=== PATIENT | male | born 1935 | race Caucasian/White ===

== ENCOUNTER 2024-08-20 10:18 | Emergency (ER) | payer MEDICARE, OTHER, SELFPAY ==
[2024-08-20 10:22] VITALS: BP 114/57
[2024-08-20 11:04] VITALS: BMI 23.4
--- NOTE | 2024-08-20 11:05 | ED.GENMED ---
History of Present Illness
General
Chief Complaint: Abdominal Symptoms
Source: patient
Exam Limitations: none
Time Seen by Provider: 08/20/24 10:53
Nursing documentation reviewed up to this point in time: agreed with
History of Present Illness
History of Present Illness:
Patient presents to ED secondary to persistent lower abdominal pain, along with diarrhea over the past 10 days, which has worsened over the past 48 hours. Denies fever or chills. Denies nausea or vomiting. Denies trauma. Denies recent change in
medications or diet. Patient states that he has had number of similar symptoms in the past, secondary to diverticulitis.
Past History
Past History
ED Past Medical History: GERD, HTN, Hypercholesterolemia, NIDDM, Psychiatric (Anxiety), Other (Diverticulitis) and Other (BPH)
Social History
Tobacco: Non-smoker
Alcohol: Daily
Personal:
Living: assisted living ([facility])
Review of Systems
Review of Systems
Allergies reviewed?: Yes
All Other Systems: ROS reviewed and negative except as documented in HPI and ROS
Constitutional: Reports no symptoms; Denies fever
EENT: Reports no symptoms
Respiratory: Reports no symptoms
Cardiac: Reports no symptoms
ABD/GI: Reports abdominal pain and diarrhea; Denies nausea or vomiting
: Reports no symptoms
Musculoskeletal: Reports no symptoms
Skin: Reports no symptoms
Neurological: Reports no symptoms
Phy Exam
Physical Exam
Physical Exam:
Physical Exam
General: no apparent distress, not acutely ill. afebrile.
Head: nc/at. eomi
Neck: supple. no meningeal signs.
Heart: s1/s2 regular rate and rhythm, no murmur. equal radial pulses.
Lungs: no acute respiratory distress. clear bilaterally
Abdomen: normal bowel sounds. not tender. no distention
Neuro: alert and oriented. no focal neurological deficits
Skin: no rash
Psychiatric: well kept. interactive and cooperative
Extremities: no edema. no calf tenderness.
Course
Orders/Labs/Results
Orders:
Orders
08/20/24 11:00
Iohexol [Omnipaque] See Protocol PO NOW STA
08/20/24 11:07
Complete Blood Count/With Diff Urgent
Comprehensive Metabolic Panel Urgent
08/20/24 13:00
CT Abd/pel (oral only)-DH Only Urgent
Comment:
Reason For Exam: Lower abdominal pain
Abnormal Lab Results
08/20/24
11:07
RBC 3.60 L 10^6/uL
(4.70-6.10)
Hgb 10.4 L g/dL
(13.0-18.0)
Hct 31.8 L %
(39.0-52.0)
MCHC 32.7 L g/dL
(33.0-37.0)
RDW 14.9 H %
(11.5-14.5)
MPV 10.9 H fL
(7.4-10.4)
Abs Immat Gran (auto) 0.1 H 10^3/uL
(0-0.05)
Absolute Lymphs (auto) 0.9 L 10^3/uL
(1.2-3.4)
Absolute Monos (auto) 1.1 H 10^3/uL
(0.1-0.6)
Immature Gran % 0.7 H %
(0-0.5)
Lymphocytes % 12.1 L %
(20.5-51.1)
Monocytes % 13.8 H %
(1.7-9.3)
Carbon Dioxide 20 L mmol/L
(22-30)
BUN 23 H mg/dl
(9-20)
Creatinine 1.5 H mg/dL
(0.7-1.3)
Glucose 133 H mg/dl
(70-99)
Total Bilirubin < 0.1 L mg/dl
(0.2-1.3)
08/20/24 11:07
08/20/24 11:07
Vital Signs
Initial and Last Documented VS:
Initial Vital Signs
Temp Pulse Resp BP Pulse Ox
98.1 F 78 18 114/57 92
08/20/24 10:22 08/20/24 10:22 08/20/24 10:22 08/20/24 10:22 08/20/24 10:22
Last Documented Vital Signs
Temp Pulse Resp BP Pulse Ox
98.1 F 65 19 133/58 94
08/20/24 10:22 08/20/24 14:15 08/20/24 14:15 08/20/24 14:00 08/20/24 14:15
MDM/Problems Addressed
MDM/Problems Addressed:
Patient with an unremarkable workup in ED, including blood work and CT scan. Patient remains afebrile, helically stable, and nontoxic-appearing. Repeat abdominal exam: Soft and nontender. Differential diagnosis including nonspecific diarrhea
versus early diverticulitis discussed with patient and family. Advised PCP follow-up next week, or return to ED with worsening symptoms, i.e. fever/worsening pain/vomiting. Patient expresses understanding at time of discharge.
*Critical Care Note
Total Time (30-74mins, 75-104mins- exclusive of procedures): Not Applicable
ED Attending Note
-
Portions of this chart may have been created with voice recognition software.� Occasional wrong word or��sound alike� substitutions may have occurred due to the inherent limitations of voice recognition software.
Discharge Plan
Departure
Patient Disposition: Home (Routine Discharge)
Date of Disposition: 08/20/24
Time of Disposition: 14:17
Patient with high blood pressure during this ER visit?: Yes
Discharge Problem:
Diarrhea
Instructions: Diarrhea in teens and adults
Prescriptions:
No Action
metformin 500 MG tablet
1,000 mg PO DAILY
Patient Comments:
pt take at 1900 in evening
metformin 500 MG tablet
500 mg PO DAILY AT 0700
aspirin [Baby Aspirin] 81 MG tablet,chewable
81 mg PO
losartan [Cozaar] 100 MG tablet
100 mg PO DAILY
finasteride 5 MG tablet
5 mg PO DAILY
ezetimibe-simvastatin [Vytorin 10-10] 1 TAB tablet
Patient Comments:
pt unsure of dose
metronidazole 500 MG tablet
500 mg PO TID Qty: 21 0RF
levofloxacin 500 MG tablet
500 mg PO DAILY Qty: 7 0RF
Referrals:
Galindo Fox MD [Family Provider] -
Activity Restrictions/Additional Instructions:
As discussed, please follow up with your primary care physician for re-evaluation next week, or return to ED with worsening symptom, i.e. fever/worsening pain/vomiting.
Interventions
Interventions:
*Risk Screen - Suicide Last Done: 08/20/24 10:22
*General Assessment Last Done: 08/20/24 10:22
*Neglect/Abuse Screening Last Done: 08/20/24 10:22
ED- Fall Risk Assessment Last Done: 08/20/24 11:07
*ED COVID-19 Vaccine History Last Done: 08/20/24 11:07
*Nursing Disposition Last Done: 08/20/24 14:30
SA-Wojqgr-Kqgpkkgfnj Assessment Last Done: 08/20/24 11:07
Discharge Date and Time
Discharge Date/Time: 08/20/24 14:32
Print Language: FRENCH
[2024-08-20] MEDS: OMNIPAQUE 50 ML PO (11:09)
[2024-08-20 11:28] LABS: % Basophils 0.3 % (0-2); % Immature Granulocytes 0.7 % (0-0.5); % Lymphocytes 12.1 % (20.5-51.1); % Monocytes 13.8 % (1.7-9.3); % Neutrophils 69.1 % (42.2-75.2); Absolute Eosinophils 0.3 10^3/uL (0-0.7); Absolute Immature Granulocytes 0.1 10^3/uL (0-0.05); Absolute Lymphocytes 0.9 10^3/uL (1.2-3.4); Absolute Monocytes 1.1 10^3/uL (0.1-0.6); Absolute Neutrophils 5.3 10^3/uL (1.4-6.5); Hematocrit 31.8 % (39.0-52.0); Hemoglobin 10.4 g/dL (13.0-18.0); Mean Corp Hgb Conc. 32.7 g/dL (33.0-37.0); Mean Corpuscular Hgb 28.9 pg (27.0-31.0); Mean Corpuscular Volume 88.3 fL (80.0-94.0); Mean Platelet Volume 10.9 fL (7.4-10.4); Nucleated Red Blood Cells % 0 % (-); Platelet Count 221 10^3/uL (130-400); Red Cell Dist. Width 14.9 % (11.5-14.5); White Blood Cell Count 7.7 10^3/uL (4.8-10.8)
[2024-08-20 11:43] LABS: ALT (SGPT) 14 U/L (0-50); AST (SGOT) 19 U/L (17-59); Albumin 3.7 g/dl (3.5-5.0); Alkaline Phosphatase 91 U/L (38-126); Blood Urea Nitrogen 23 mg/dl (9-20); Calcium 9.1 mg/dl (8.4-10.2); Carbon Dioxide 20 mmol/L (22-30); Chloride 107 mmol/L (98-107); Estimated Creatinine Clearance 37 ml/min; Glucose 133 mg/dl (70-99); Sodium 140 mmol/L (135-145); Total Bilirubin < 0.1 mg/dl (0.2-1.3); Total Protein 6.3 g/dl (6.3-8.2)
[2024-08-20 12:00] VITALS: BP 129/62
[2024-08-20 13:00] VITALS: BP 124/61
[2024-08-20 14:00] VITALS: BP 133/58
== END 2024-08-20 14:32 | disposition home or self-care (01) ==
LOC: EMR 10:18
PROVIDERS: EMERGENCY PHYSICIAN Emergency Medicine; FAMILY PHYSICIAN Family Medicine
DX: R19.7 Diarrhea, unspecified (principal); I10 Essential (primary) hypertension
CPT/HCPCS: 99284; 74176; 80053; 85025

== ENCOUNTER 2024-12-21 13:04 | Emergency (ER) | payer MEDICARE, OTHER, SELFPAY ==
[2024-12-21 13:06] VITALS: BP 143/68
[2024-12-21 13:28] LABS: % Basophils 0.1 % (0-2); % Eosinophils 0.8 % (0-6); % Immature Granulocytes 0.6 % (0-0.5); % Lymphocytes 4.9 % (20.5-51.1); % Monocytes 5.8 % (1.7-9.3); % Neutrophils 87.8 % (42.2-75.2); Absolute Eosinophils 0.1 10^3/uL (0-0.7); Absolute Immature Granulocytes 0.1 10^3/uL (0-0.05); Absolute Lymphocytes 0.4 10^3/uL (1.2-3.4); Absolute Monocytes 0.5 10^3/uL (0.1-0.6); Absolute Neutrophils 7.6 10^3/uL (1.4-6.5); Hematocrit 32.7 % (39.0-52.0); Hemoglobin 10.8 g/dL (13.0-18.0); Mean Corpuscular Hgb 28.8 pg (27.0-31.0); Mean Corpuscular Volume 87.2 fL (80.0-94.0); Mean Platelet Volume 10.3 fL (7.4-10.4); Nucleated Red Blood Cells % 0 % (-); Platelet Count 198 10^3/uL (130-400); Red Blood Cell Count 3.75 10^6/uL (4.70-6.10); Red Cell Dist. Width 14.9 % (11.5-14.5); White Blood Cell Count 8.6 10^3/uL (4.8-10.8)
[2024-12-21 13:41] LABS: ALT (SGPT) 13 U/L (0-50); AST (SGOT) 18 U/L (17-59); Albumin 3.6 g/dl (3.5-5.0); Alkaline Phosphatase 99 U/L (38-126); Blood Urea Nitrogen 24 mg/dl (9-20); Calcium 8.6 mg/dl (8.4-10.2); Carbon Dioxide 18 mmol/L (22-30); Chloride 107 mmol/L (98-107); Glucose 177 mg/dl (70-99); Potassium 4.8 mmol/L (3.5-5.1); Sodium 136 mmol/L (135-145); Total Bilirubin 0.5 mg/dl (0.2-1.3); Total Protein 6.4 g/dl (6.3-8.2); eGFR 48.04
[2024-12-21 13:44] LABS: COVID-19 Antigen Negative (Negative)
--- NOTE | 2024-12-21 14:56 | ED.GENMED ---
History of Present Illness
General
Chief Complaint: Cold/Flu/URI Symptoms
Source: patient and family
Time Seen by Provider: 12/21/24 14:41
History of Present Illness
History of Present Illness:
89-year-old gentleman presents to the emergency room for evaluation of chills and rigors. Patient began having the symptoms today. He denies any chest pain. He does endorse some shortness of breath. No nausea or vomiting. Patient has had some
increased urinary frequency but denies dysuria. Does have history of prostatic hypertrophy. He did not take any Tylenol prior to arrival. Patient resides at [facility].
Past History
Past History
ED Past Medical History: GERD, HTN, Hypercholesterolemia, NIDDM, Psychiatric (Anxiety), Other (Diverticulitis) and Other (BPH)
Social History
Tobacco: Non-smoker
Alcohol: Daily
Personal:
Living: assisted living ([facility])
Phy Exam
Physical Exam
Physical Exam:
General: Awake, Alert, Oriented X3. No acute distress.
Vitals: unremarkable
Head: Atraumatic
Eyes: Pupils equal, EOMI
Throat: Airway intact, no exudates
Neck: Trachea midline
Lungs: Clear and equal b/l
Heart: Regular rate, no murmurs
Abd: Soft, Nontender, No pulsatile mass
Neuro: Nonfocal
Skin: Warm, dry, no rash
Extremities: pulses equal b/l, no edema
Course
Orders/Labs/Results
Orders:
Orders
12/21/24 13:16
COVID-19 Antigen Urgent
Source: Nasal Swab
Complete Blood Count/With Diff Urgent
Comprehensive Metabolic Panel Urgent
Influenza A+B Rapid Molecular Urgent
CHASE Source: Nasal Swab
Specimen Description:
12/21/24 14:54
CR Chest - 2 Views Urgent
Comment:
Reason For Exam: fever, sob
12/21/24 15:36
Urinalysis Reflex To Culture Urgent
Date Specimen was Collected: 12/21/24
Time Specimen was Collected: 15:34
Urine Microscopic Reflex Cult Urgent
Urine Culture Urgent
CHASE Source: U
Specimen Description:
Date Specimen was Collected: 12/21/24
Time Specimen was Collected: 15:34
12/21/24 16:25
Acetaminophen [Tylenol] 650 mg .ROUTE .STK-MED ONE
12/21/24 16:26
Acetaminophen [Tylenol] 650 mg PO NOW STA
12/21/24 16:30
Cephalexin Monohydrate [Keflex] 500 mg PO NOW STA
Abnormal Lab Results
12/21/24 12/21/24
13:16 15:36
RBC 3.75 L 10^6/uL
(4.70-6.10)
Hgb 10.8 L g/dL
(13.0-18.0)
Hct 32.7 L %
(39.0-52.0)
RDW 14.9 H %
(11.5-14.5)
Abs Immat Gran (auto) 0.1 H 10^3/uL
(0-0.05)
Absolute Neuts (auto) 7.6 H 10^3/uL
(1.4-6.5)
Absolute Lymphs (auto) 0.4 L 10^3/uL
(1.2-3.4)
Immature Gran % 0.6 H %
(0-0.5)
Neutrophils % 87.8 H %
(42.2-75.2)
Lymphocytes % 4.9 L %
(20.5-51.1)
Carbon Dioxide 18 L mmol/L
(22-30)
BUN 24 H mg/dl
(9-20)
Creatinine 1.4 H mg/dL
(0.7-1.3)
Glucose 177 H mg/dl
(70-99)
Ur Occult Blood Reflex 1+ A
(Negative)
Urine Nitrite (Reflex) Positive A
(Negative)
Leukocyte Esterase Rfl 2+ A
(Negative)
Urine WBC (Reflex) 70-80 A /HPF
(0-5)
Urine Bacteria (Reflex) Moderate A
(Negative)
Urine Albumin (Reflex) 2+ A
(Neg - Trace)
12/21/24 13:16
12/21/24 13:16
Vital Signs
Initial and Last Documented VS:
Initial Vital Signs
Temp Pulse Resp BP Pulse Ox
99.0 F 103 20 143/68 94
12/21/24 13:06 12/21/24 13:06 12/21/24 13:06 12/21/24 13:06 12/21/24 13:06
Last Documented Vital Signs
Temp Pulse Resp BP Pulse Ox
100.3 F 73 31 110/61 94
12/21/24 15:37 12/21/24 15:04 12/21/24 15:04 12/21/24 16:48 12/21/24 16:49
MDM/Problems Addressed
Differential Diagnosis Includes:
COVID, influenza, pneumonia, urinary tract infection
MDM/Problems Addressed:
Patient presents with chills. His oral temperature went as high as 100.3 here. I suspect that he is having chills due to an infectious process. COVID and flu are negative. Chest x-ray shows no acute abnormalities. Urinalysis is suggestive of a
urinary tract infection with positive nitrates and positive leukocyte esterase. WBC is 7080 per high-power field. There are significant mount of leuks but given the overall presentation I believe this is likely a urinary tract infection. Patient
started on Keflex.
*Critical Care Note
Total Time (30-74mins, 75-104mins- exclusive of procedures): Not Applicable
ED Attending Note
-
Portions of this chart may have been created with voice recognition software.� Occasional wrong word or��sound alike� substitutions may have occurred due to the inherent limitations of voice recognition software.
Discharge Plan
Departure
Patient Disposition: Home (Routine Discharge)
Date of Disposition: 12/21/24
Time of Disposition: 16:31
Patient with high blood pressure during this ER visit?: No
Condition: Good
Discharge Problem:
Acute UTI, Chills with fever
Instructions: Urinary tract infections in adults, Fever, Adult (DC)
Prescriptions:
New
cephalexin 500 mg capsule
500 mg PO BID 7 Days Qty: 14 0RF
No Action
metformin 500 MG tablet
1,000 mg PO DAILY
Patient Comments:
pt take at 1900 in evening
metformin 500 MG tablet
500 mg PO DAILY AT 0700
aspirin [Baby Aspirin] 81 MG tablet,chewable
81 mg PO
losartan [Cozaar] 100 MG tablet
100 mg PO DAILY
finasteride 5 MG tablet
5 mg PO DAILY
ezetimibe-simvastatin [Vytorin 10-10] 1 TAB tablet
Patient Comments:
pt unsure of dose
metronidazole 500 MG tablet
500 mg PO TID Qty: 21 0RF
levofloxacin 500 MG tablet
500 mg PO DAILY Qty: 7 0RF
Referrals:
Terence Rodriges MD [Family Provider] -
Interventions
Interventions:
*Risk Screen - Suicide Last Done: 12/21/24 13:06
*General Assessment Last Done: 12/21/24 13:06
*Neglect/Abuse Screening Last Done: 12/21/24 13:06
*Nursing Disposition Last Done: 12/21/24 16:59
ED- Pulmonary Assessment Last Done: 12/21/24 15:15
Discharge Date and Time
Discharge Date/Time: 12/21/24 16:59
Print Language: HUNGARIAN
[2024-12-21 15:00] VITALS: BP 128/53
[2024-12-21 15:54] LABS: Urine Albumin 2+ (Neg - Trace); Urine Bilirubin Negative (Negative); Urine Color Yellow; Urine Glucose Negative (Negative); Urine Ketone Negative (Negative); Urine Leukocyte 2+ (Negative); Urine Nitrite Positive (Negative); Urine Occult Blood 1+ (Negative); Urine Urobilinogen Negative (Neg - 1+); Urine pH 6.5 (5.0-9.0)
[2024-12-21 15:56] LABS: Urine Character Slightly Cloudy (Clear)
[2024-12-21 16:13] LABS: Urine Squamous Cell 21-25 /LPF (Few)
[2024-12-21 16:14] LABS: Urine Bacteria Moderate (Negative); Urine Red Blood Cell 0-2 /HPF (0-2); Urine White Cell 70-80 /HPF (0-5)
[2024-12-21] MEDS: TYLENOL 650 MG PO (16:26)
[2024-12-21 16:48] VITALS: BP 110/61
[2024-12-21] MEDS: KEFLEX 500 MG PO (16:49)
== END 2024-12-21 16:59 | disposition home or self-care (01) ==
LOC: EMR 13:04
PROVIDERS: Student in an Organized Health Care Education/Training Program; EMERGENCY PHYSICIAN Emergency Medicine; FAMILY PHYSICIAN Student in an Organized Health Care Education/Training Program
DX: N39.0 Urinary tract infection, site not specified (principal); E11.9 Type 2 diabetes mellitus without complications; E78.00 Pure hypercholesterolemia, unspecified; I10 Essential (primary) hypertension; K21.9 Gastro-esophageal reflux disease without esophagitis; N40.0 Benign prostatic hyperplasia without lower urinary tract symptoms
CPT/HCPCS: 99284; 71046; 80053; 81003; 81015; 85025; 87077; 87086; 87502; 87811